=== PATIENT | female | born 1980 | race African-American/Black ===

== ENCOUNTER 2016-11-28 15:33 | Inpatient (IN) | payer OTHER ==
[~2016-11-28] VITALS: Ht 6 cm; Wt 96.2 kg
--- NOTE | ~2016-11-28 | HC ---
[facility] [place] [address] CONSULTATION Name: DIRK DOMINGUEZ Room #: 205-P [facility] IN M.R.#: [id number] Admission: 11/28/16 Attend Phys: Jatinder [facility] MD Discharge: 11/29/16 Date of : 76 Report #: [id number] THIS REPORT FOR: //name// CC: [facility] physician/PCP Jatinder Madison DATE OF SERVICE: 11/29/2016 INDICATION: Chest pains. HISTORY OF PRESENT ILLNESS: This is a 36-year-old female presenting with right-sided chest pain. 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 She has some diaphoresis and shortness of breath. There were no alleviating or aggravating factors. The patient persisted for several hours and she presented to the ER for an evaluation. The initial ECG reveals sinus rhythm with no acute ST segment changes. Serial troponin levels are negative x 3. The patient has a prior history of an inferior wall TN in 2016. She did undergo an emergent cardiac catheterization, revealing patent epicardial vessels. However, there were occlusions in the distal branches off the RCA. It was felt that she had a spontaneous lysis of thrombus with distal embolization into the distal vessels. Since that procedure, the patient reports that she has been compliant with the blood pressure medications. She just established care with a animal trapper over at [facility]. PAST MEDICAL HISTORY: History of TN in 2016; cardiomyopathy, mixed type; hypertension; hypercholesterolemia. ALLERGIES: None. MEDICATIONS: Include Plavix 75 mg daily, aspirin once a day, Lipitor 40 mg at night, Coreg 25 mg twice a day, Monopril 20 mg twice a day and chlorthalidone 25 mg daily. SOCIAL HISTORY: Denies tobacco use. FAMILY HISTORY: Negative for premature CAD. REVIEW OF SYSTEMS: A full 10-point review of systems performed, only the pertinent positives and negatives are described in the HPI. PHYSICAL EXAMINATION: VITAL SIGNS: Blood pressure is 120/70, heart rate is beats per minute. GENERAL APPEARANCE: This is an overweight female in no acute respiratory distress. [address] [address] CONSULTATION Name: DIRK DOMINGUEZ Room #: 205-P [facility] IN M.R.#: [id number] Admission: 11/28/16 Attend Phys: Jatinder [facility] MD Discharge: 11/29/16 Date of : 76 Report #: [id number] HEAD AND EYES: Normocephalic. Sclerae are anicteric. ENT: Oral mucosa moist. NECK: Supple. LUNGS: Clear to auscultation. CARDIAC: Regular rate and rhythm, S1, S2 positive. ABDOMEN: Soft, nontender. Bowel sounds positive. EXTREMITIES: No major joint deformities. No edema. NEUROLOGIC: Alert and oriented times 3. LABORATORY VALUES: Serial troponin levels are negative times 3. ECG reveals sinus rhythm, small Q-waves inferiorly, no acute ST segment changes. IMPRESSION AND PLAN: 1. Chest pains, the patient reports having at least several hours' duration of right-sided discomfort. However, the troponin level and ECG are within normal limits. This is unlikely to be cardiac in origin. However, she does have a history of prior myocardial infarction. We will schedule patient for noninvasive stress testing to rule out ischemia. 2. Coronary artery disease, stable with antiplatelet therapy. 3. Hypertension: The blood pressure is under better control since her previous admission. She has been compliant with the beta-jet and STEPHANIE inhibitor. 4. Hypercholesterolemia, tolerating statin therapy. Thank you for allowing me to participate in the care of your patient. <ELECTRONICALLY SIGNED> By: Husam Kim MD 12/02/16 0817 0828 0944 Husam Kim MD /nt
--- NOTE | ~2016-11-28 | EKG ---
[address] [address] ELECTROCARDIOGRAM REPORT Name: DIRK DOMINGUEZ Room #: 205-P [facility] IN M.R.#: [id number] Admission: 11/28/16 Attend Phys: Jatinder [facility] MD Discharge: Date of : 76 Report #: [id number] THIS REPORT FOR: //name// [facility] ED Test Date: 2016-11-28 Test Time: 15:39:29 Pat Name: DIRK DOMINGUEZ Department: Room: [facility] Gender: F Vocational Counselor: [id number] : 1980 Requested By: Maximino Reis Order Number: [id number] MD: Merlin Tena Measurements Intervals [place] Rate: 78 P: 27 CO: 154 QRS: 10 QRSD: 85 T: 24 QT: 379 QTc: 432 Interpretive Statements Sinus arrhythmia Abnormal R-wave progression, early transition Abnormal inferior Q waves Compared to ECG 11/05/2015 06:54:00 No significant change was found Electronically Signed On 11-29-2016 8:33:39 CDT by Merlin Tena [email or web address] <ELECTRONICALLY SIGNED> By: Merlin Tena MD, [facility] 11/29/16 0833 1539 1539 Merlin Tena MD, [facility] /EPI
[~2016-11-28 15:33] MED LIST: ASPIR 8181 MG PO; ATORVASTATIN CA40 MG PO; CARVEDILOL25 MG PO; CHLORTHALIDONE25 MG PO; CLOPIDOGREL75 MG PO; IBUPROFEN 800800 M1 PO; LANOLIN56 GM; MONOPRIL20 MG PO; NIFEDIPINE ER30 M1 PO; NORCO 5-325 TA1 EACH PO; PRENATAL PO
[2016-11-28 15:55] VITALS: BP 134/82
[2016-11-28 15:58] LABS: ABSOLUTE NEUTROPHILS 4.3 thou/uL (1.4-8.2); BASOPHILS 0.7 % (0.0-2.0); EOSINOPHILS 1.5 % (0.0-3.0); HEMATOCRIT 37.8 % (37.0-47.0); HEMOGLOBIN 12.7 gm/dL (12.0-15.0); LYMPHOCYTES 27.2 % (24.0-44.0); MCH 27.5 pg (26.0-34.0); MCHC 33.7 g/dL (28.0-37.0); MCV 81.6 fL (80.0-100.0); MONOCYTES 8.2 % (1.0-8.0); PLATELET COUNT 281 thou/uL (150-400); POLYS 62.4 % (36.0-66.0); RBC 4.63 mil/uL (4.20-5.00); RDW 13.9 % (10.5-14.5); WBC 6.9 thou/uL (4.0-11.0)
[2016-11-28 15:59] LABS: MANUAL DIFF NO
[2016-11-28 16:21] LABS: ALKALINE PHOSPHATASE 104 U/L (46-116); ANION GAP 11 mmol/L (7-16); BUN 9 mg/dL (7-18); CALCIUM 8.5 mg/dL (8.5-10.1); CHLORIDE 97 mmol/L (98-107); CO2 27 mmol/L (21-32); CREATININE 0.9 mg/dL (0.6-1.0); DIRECT BILIRUBIN 0.2 mg/dL (<0.1-0.3); GLUCOSE 112 mg/dL (74-106); NT-PRO BRAIN NAT PEPTIDE 163 pg/mL (<300); SGOT 22 U/L (15-37); SGPT 26 U/L (30-65); SODIUM 135 mmol/L (136-145); TOTAL BILIRUBIN 0.6 mg/dL (<0.1-1.0); TOTAL PROTEIN 7.7 g/dL (6.4-8.2); TROPONIN-I < 0.04 ng/mL (<0.04-0.07)
[2016-11-28 16:25] LABS: POTASSIUM 2.6 mmol/L (3.5-5.1)
[2016-11-28 17:05] LABS: APTT 26.4 Seconds (24.5-32.8); PROTIME 10.5 Seconds (9.3-11.4)
[2016-11-28 22:14] VITALS: BP 132/81
[2016-11-28 22:24] VITALS: BP 112/79
[2016-11-28 23:44] VITALS: BP 113/71
[2016-11-29 03:32] VITALS: BP 108/61
[2016-11-29 07:05] LABS: HEMATOCRIT 40.5 % (37.0-47.0); HEMOGLOBIN 13.3 gm/dL (12.0-15.0); MCH 27.5 pg (26.0-34.0); MCHC 32.8 g/dL (28.0-37.0); MCV 83.7 fL (80.0-100.0); RBC 4.84 mil/uL (4.20-5.00); WBC 4.8 thou/uL (4.0-11.0)
[2016-11-29 07:27] LABS: ALBUMIN 3.8 g/dL (3.4-5.0); CALCIUM 8.8 mg/dL (8.5-10.1); CREATININE 0.8 mg/dL (0.6-1.0); POTASSIUM 3.1 mmol/L (3.5-5.1); TOTAL BILIRUBIN 0.5 mg/dL (<0.1-1.0); TOTAL PROTEIN 7.3 g/dL (6.4-8.2)
[2016-11-29 07:35] VITALS: BP 133/87
[2016-11-29] MEDS ORDERED: KLOR-CON 1010 MEQ PO (14:31)
[2016-11-29 15:32] VITALS: BP 133/87
== END 2016-11-29 16:40 | disposition home or self-care (01) | DRG 313 ==
LOC: ER 15:33 → EROBS 16:43 → 2N 16:43
PROVIDERS: Internal Medicine; Physician Assistant
DX: R07.89 Other chest pain (principal); I25.110 Atherosclerotic heart disease of native coronary artery with unstable angina pectoris; E78.5 Hyperlipidemia, unspecified; I10 Essential (primary) hypertension; E87.6 Hypokalemia; E78.00 Pure hypercholesterolemia, unspecified; F32.9 Major depressive disorder, single episode, unspecified; Z79.899 Other long term (current) drug therapy; I25.2 Old myocardial infarction; Z82.49 Family history of ischemic heart disease and other diseases of the circulatory system; Z98.61 Coronary angioplasty status
CPT/HCPCS: 10797

== ENCOUNTER 2018-12-03 11:56 | Emergency (ER) | payer OTHER ==
[~2018-12-03] VITALS: Ht 160 cm; Wt 88.5 kg
[~2018-12-03 11:56] MED LIST changes: +KLOR-CON 1010 MEQ PO
[2018-12-03 12:26] LABS: ABSOLUTE NEUTROPHILS 2.3 thou/uL (1.4-8.2); HEMATOCRIT 36.5 % (37.0-47.0); HEMOGLOBIN 12.1 gm/dL (12.0-15.0); LYMPHOCYTES 39.6 % (24.0-44.0); MCH 31.8 pg (26.0-34.0); MCHC 33.2 g/dL (28.0-37.0); MCV 95.8 fL (80.0-100.0); MONOCYTES 11.3 % (1.0-8.0); PLATELET COUNT 210 thou/uL (150-400); POLYS 46.1 % (36.0-66.0); RBC 3.81 mil/uL (4.20-5.00); RDW 17.5 % (10.5-14.5)
[2018-12-03 12:34] LABS: ANION GAP 12 mmol/L (7-16); BUN 14 mg/dL (7-18); CALCIUM 8.2 mg/dL (8.5-10.1); CHLORIDE 103 mmol/L (98-107); CO2 24 mmol/L (21-32); CREATININE 0.9 mg/dL (0.6-1.0); GLUCOSE 107 mg/dL (74-106); SODIUM 139 mmol/L (136-145)
[2018-12-03 12:43] LABS: ALBUMIN 3.1 g/dL (3.4-5.0); SGOT 312 U/L (15-37); SGPT 110 U/L (30-65); TOTAL BILIRUBIN 0.7 mg/dL (<0.1-1.0); TOTAL PROTEIN 6.9 g/dL (6.4-8.2); TROPONIN-I <0.06 ng/mL (<0.06)
[2018-12-03] MEDS ORDERED: POTASSIUM20 PO (13:22)
[2018-12-03 13:30] VITALS: BP 130/83
--- NOTE | 2018-12-04 07:52 | EKG ---
[place] [address] [facility] [place] [address] ELECTROCARDIOGRAM REPORT Name: DIRK DOMINGUEZ [id number] ������������������ Admission: 12/03/18 ������������������ Attend Phys: Discharge: 12/03/18 ������������������ Date of : 76 Report #: [id number] ����������������������������������������������������������������� [id number] THIS REPORT FOR: //name// [facility] ED Test Date: 2018-12-03 Test Time: 12:06:16 Pat Name: DIRK DOMINGUEZ Department: Room: Gender: F Appliance Repairer: : 1980 Requested By: Adilia Noland Order Number: [id number] MD: Merlin Tena Measurements Intervals [place] Rate: 97 P: 19 IA: 153 QRS: 18 QRSD: 82 T: 45 QT: 345 QTc: 439 Interpretive Statements Sinus rhythm Probable inferior infarct, old Compared to ECG 11/28/2016 15:39:29 No significant change was found Electronically Signed On 12-04-2018 7:52:01 CDT by Merlin Tena [email or web address] ��������������������������������������������� <ELECTRONICALLY SIGNED> ���������������������������������������� By: Merlin Tena MD, [facility] ��������������������������������������������� 12/04/18 0752 1206 1206 Merlin Tena MD, F[facility] /EPI
== END 2018-12-03 13:31 | disposition home or self-care (01) ==
LOC: ER 11:56
PROVIDERS: Physician Assistant
DX: R07.9 Chest pain, unspecified (principal); E87.6 Hypokalemia; R94.5 Abnormal results of liver function studies; F32.9 Major depressive disorder, single episode, unspecified; I25.2 Old myocardial infarction; F10.10 Alcohol abuse, uncomplicated; F41.9 Anxiety disorder, unspecified